=== PATIENT | male | born 1970 | race Caucasian/White ===

== ENCOUNTER 2023-05-21 08:45 | Outpatient (CLI) | payer BC ==
[2023-05-21] MEDS ORDERED: Magnevist 469MG/ML 20 ML VIAL ONE (12:51)
== END 2023-05-21 08:46 | disposition home or self-care (01) ==
LOC: CSHMRI 08:45
PROVIDERS: ATTEND Psychiatry & Neurology Neurology
DX: G40.209 Localization-related (focal) (partial) symptomatic epilepsy and epileptic syndromes with complex partial seizures, not intractable, without status epilepticus (principal); G93.89 Other specified disorders of brain; J34.89 Other specified disorders of nose and nasal sinuses
CPT/HCPCS: 70553